=== PATIENT | male | born 1945 | race Caucasian/White ===

== ENCOUNTER 2016-05-17 05:40 | Day surgery (SDC) | payer OTHER, BC ==
[2016-05-17] VITALS (8 sets, daily range): BP systolic 132–176; BP diastolic 27–92
[~2016-05-17] VITALS: Ht 165.1 cm; Wt 89.0 kg
[~2016-05-17 05:40] MED LIST: ADULT LOW DOSE81 M1 PO; ASCORBIC ACID500 M3 PO; ASPIR-LOW81 MG PO; CELEBREX200 MG PO; COMBIVENT RESPIM4 GM IH; ENBREL25 MG/0.5 SQ; ENBREL50 MG/1 ML SC; FIORICET WI1 CAPSULE PO; FLOVENT 11120 INHALA IH; FOLIC ACID1 MG PO; FORTESTA60 GM TD; LIPITOR40 MG PO; MULTIPLE VITAM1 EACH PO; NEURONTIN100 MG PO; NEURONTIN600 MG PO; PREVACID30 MG PO; TOPROL XL25 MG PO; TOPROL XL50 MG PO; TREXALL10 MG PO; ULTRAM50 MG PO; VOLTAREN 1% GE100 GM TP
[2016-05-17] MEDS ORDERED: NORCO 5/3251 TABLET PO (09:01)
[2016-05-18 03:18] VITALS: BP 134/76
== END 2016-05-18 10:56 | disposition home or self-care (01) ==
LOC: SDC 05:40 → 2SOUTH 08:53 → 2EAST 08:53 → 2SOUTH 08:53 → 2EAST 15:24 → SDC 15:46 → 2EAST 05-18 10:56
PROC: 0GJK3ZZ Inspection of Thyroid Gland, Percutaneous Approach (ICD-10-PCS; principal; 2016-05-17)
DX: C73 Malignant neoplasm of thyroid gland (principal); Z53.8 Procedure and treatment not carried out for other reasons; I10 Essential (primary) hypertension; K21.9 Gastro-esophageal reflux disease without esophagitis; J45.909 Unspecified asthma, uncomplicated; Z79.82 Long term (current) use of aspirin; Z79.51 Long term (current) use of inhaled steroids
CPT/HCPCS: 94640; 94640 76; 99202; G0378; J0330; J0690; J1170; J2405; J3010; J7120

== ENCOUNTER 2016-10-10 14:21 | Day surgery (SDC) | payer OTHER, BC ==
[~2016-10-10] VITALS: Ht 165.1 cm; Wt 75.7 kg
[~2016-10-10 14:21] MED LIST changes: +NORCO 5/3251 TABLET PO
[2016-10-10 15:08] VITALS: BP 131/77
[2016-10-10 16:18] LABS: HEMATOCRIT 42.1 % (38.0-50.0); MCH 28.2 PG (29.0-34.0); MCHC 33.5 G/DL (30.0-36.0); MCV 84.2 FL (86-99); MEAN PLAT.VOLUME 8.9 uM^3 (9.0-12.4); PLATELET COUNT 136 K/uL (156-360); RBC DIS.WIDTH-CV 13.2 % (11.8-14.6); RBC DIS.WIDTH-SD 40.7 % (39-53); WHITE BLOOD COUNT 3.4 K/uL (4.1-10.2)
[2016-10-10 16:25] LABS: CHLORIDE 104 mEq/L (99-109); POTASSIUM 4.1 mEq/L (3.7-5.4); SODIUM 137 mEq/L (136-147)
[2016-10-10 16:27] LABS: GLUCOSE 86 mg/dL (70-99)
[2016-10-10 16:29] LABS: ANION GAP 8 MEQ/L (2-14)
[2016-10-10 16:31] LABS: GFR ESTIMATE (CALCULATED) > 59 mL/min/
[2016-10-10 16:32] LABS: UREA NITROGEN (BUN) 22 mg/dL (9-23)
== END 2016-10-10 20:20 | disposition home or self-care (01) ==
LOC: EME 14:21 → SDC 18:48 → EME 18:48 → SDC 18:55
PROVIDERS: Nurse Practitioner Family
DX: T18.128A Food in esophagus causing other injury, initial encounter (principal); I10 Essential (primary) hypertension; I25.10 Atherosclerotic heart disease of native coronary artery without angina pectoris; K21.9 Gastro-esophageal reflux disease without esophagitis; L40.50 Arthropathic psoriasis, unspecified; E78.5 Hyperlipidemia, unspecified; Z85.850 Personal history of malignant neoplasm of thyroid; Z92.21 Personal history of antineoplastic chemotherapy; Z92.3 Personal history of irradiation; Z95.1 Presence of aortocoronary bypass graft; Z87.891 Personal history of nicotine dependence
CPT/HCPCS: 70360; 80048; 85027; 88305; 88342 TC; 93005; 99281; 99284; J0330; J2250; J2405; J3010

== ENCOUNTER 2016-12-24 18:55 | Emergency (ER) | payer OTHER, BC ==
[~2016-12-24] VITALS: Ht 165.1 cm; Wt 76.8 kg
[2016-12-24 19:42] LABS: ADD MIUA? NO; BILIRUBIN NEGATIVE; BLOOD NEGATIVE; COLOR YELLOW ((YELLOW)); GLUCOSE (STRIP) NEGATIVE; KETONES NEGATIVE; LEUKOCYTES NEGATIVE; NITRITE NEGATIVE; PROTEIN (STRIP) NEGATIVE; SPECIFIC GRAVITY 1.021 (1.000-1.030); UROBILINOGEN 0.2 MG/DL (0.2-1.0)
[2016-12-24 20:05] LABS: UCUL ADDED? NO
[2016-12-24 20:11] LABS: HEMATOCRIT 42.1 % (38.0-50.0); MCH 28.9 PG (29.0-34.0); MCHC 33.3 G/DL (30.0-36.0); MEAN PLAT.VOLUME 8.7 uM^3 (9.0-12.4); PLATELET COUNT 134 K/uL (156-360); RBC DIS.WIDTH-CV 13.8 % (11.8-14.6); RBC DIS.WIDTH-SD 44.2 % (39-53); RED BLOOD COUNT 4.84 M/uL (4.00-5.50); WHITE BLOOD COUNT 3.8 K/uL (4.1-10.2)
[2016-12-24 20:19] LABS: CHLORIDE 104 mEq/L (99-109); POTASSIUM 4.5 mEq/L (3.7-5.4); SODIUM 138 mEq/L (136-147)
[2016-12-24 20:20] LABS: GLUCOSE 108 mg/dL (70-99)
[2016-12-24 20:22] LABS: ANION GAP 12 MEQ/L (2-14)
[2016-12-24 20:24] LABS: GFR ESTIMATE (CALCULATED) > 59 mL/min/
[2016-12-24 20:25] LABS: UREA NITROGEN (BUN) 29 mg/dL (9-23)
[2016-12-24] MEDS ORDERED: PERCOCET 5/31 TABLET PO (20:32)
[2016-12-24] MEDS ORDERED: FLOMAX0.4 MG PO (20:32)
[2016-12-24 21:14] VITALS: BP 141/82
== END 2016-12-24 21:18 | disposition home or self-care (01) ==
LOC: EME 18:55 → RME 18:55
DX: N20.0 Calculus of kidney (principal); J45.909 Unspecified asthma, uncomplicated; E78.5 Hyperlipidemia, unspecified; Z95.1 Presence of aortocoronary bypass graft; Z87.891 Personal history of nicotine dependence
CPT/HCPCS: 80048; 81003; 85027; 93005; 99281; 99284

== ENCOUNTER 2017-01-03 05:34 | Day surgery (SDC) | payer OTHER, BC ==
[~2017-01-03] VITALS: Ht 165.1 cm; Wt 74.8 kg
[~2017-01-03 05:34] MED LIST changes: +FLOMAX0.4 MG PO; +PERCOCET 5/31 TABLET PO; +SYNTHROID112 MCG PO
[2017-01-03 06:44] VITALS: BP 126/78
[2017-01-03 10:05] VITALS: BP 163/84
== END 2017-01-03 10:45 | disposition home or self-care (01) ==
LOC: SDC 05:34
DX: N20.1 Calculus of ureter (principal); I10 Essential (primary) hypertension; J45.909 Unspecified asthma, uncomplicated; M06.9 Rheumatoid arthritis, unspecified; K21.9 Gastro-esophageal reflux disease without esophagitis; I25.10 Atherosclerotic heart disease of native coronary artery without angina pectoris; I45.10 Unspecified right bundle-branch block; Z95.1 Presence of aortocoronary bypass graft; Z85.850 Personal history of malignant neoplasm of thyroid; Z87.891 Personal history of nicotine dependence; Z79.82 Long term (current) use of aspirin
CPT/HCPCS: C1769; C2625; J0330; J0690; J2250; J2405; J3010; J7050

== ENCOUNTER → 2017-02-22 | Outpatient (CLI) | payer OTHER, BC | END | disposition home or self-care (01) | DX: R26.2 Difficulty in walking, not elsewhere classified (principal); M25.561 Pain in right knee; M25.661 Stiffness of right knee, not elsewhere classified; M62.81 Muscle weakness (generalized); M17.11 Unilateral primary osteoarthritis, right knee | CPT/HCPCS: 97161 GP; 97530 GP; G8978 GP; G8979 GP; G8980 GP ==

== ENCOUNTER 2017-04-04 22:13 | Inpatient (IN) | payer OTHER, BC ==
[~2017-04-04] VITALS: Ht 165.1 cm; Wt 77.6 kg
[~2017-04-04 22:13] MED LIST changes: +VENTOLIN HFA18 GM IH
[2017-04-05 06:44] VITALS: BP 134/80
[2017-04-05 11:41] VITALS: BP 131/79
[2017-04-05 15:54] VITALS: BP 120/56
[2017-04-05 18:12] VITALS: BP 122/79
[2017-04-05 20:25] VITALS: BP 114/63
[2017-04-06] VITALS (7 sets, daily range): BP systolic 107–118; BP diastolic 57–78
[2017-04-06 09:14] LABS: HEMATOCRIT 30.6 % (38.0-50.0)
[2017-04-06 09:27] LABS: HEMOGLOBIN 10.2 G/DL (12.5-16.6)
[2017-04-06 09:30] LABS: CHLORIDE 105 MEQ/L (99-109); CREATININE 0.6 MG/DL (0.6-1.3); GFR ESTIMATE (CALCULATED) > 59 mL/min/ (58.99-99999); GLUCOSE 104 mg/dL (70-99); POTASSIUM 3.6 MEQ/L (3.7-5.4); SODIUM 139 MEQ/L (136-147); UREA NITROGEN (BUN) 23 mg/dL (9-23)
[2017-04-07 00:20] VITALS: BP 116/65
[2017-04-07 04:26] VITALS: BP 118/67
[2017-04-07 08:14] VITALS: BP 113/55
[2017-04-07] MEDS ORDERED: SENNA PLUS TAB1 EACH PO (08:22)
[2017-04-07] MEDS ORDERED: ENDOCET 5-3251 EACH PO (08:22)
[2017-04-07] MEDS ORDERED: ELIQUIS2.5 MG PO (08:22)
[2017-04-07 08:48] LABS: HEMATOCRIT 26.1 % (38.0-50.0); HEMOGLOBIN 8.8 G/DL (12.5-16.6); MCV 89.4 FL (86-99)
[2017-04-07 12:00] VITALS: BP 134/67
== END 2017-04-07 14:35 | DRG 470 ==
LOC: ENRESERV 22:13 → 2SOUTH 04-05 05:57 → 3WEST 04-05 11:10 → 2SOUTH 04-05 11:33 → 3WEST 04-07 14:35
PROVIDERS: Orthopaedic Surgery
PROC: 0SRC0J9 Replacement of Right Knee Joint with Synthetic Substitute, Cemented, Open Approach (ICD-10-PCS; principal; 2017-04-05)
DX: M17.11 Unilateral primary osteoarthritis, right knee (principal); M65.9 Synovitis and tenosynovitis, unspecified; I10 Essential (primary) hypertension; E78.00 Pure hypercholesterolemia, unspecified; E03.9 Hypothyroidism, unspecified; G89.29 Other chronic pain; K21.9 Gastro-esophageal reflux disease without esophagitis; L40.50 Arthropathic psoriasis, unspecified; Z68.28 Body mass index [BMI] 28.0-28.9, adult; Z87.891 Personal history of nicotine dependence; Z82.49 Family history of ischemic heart disease and other diseases of the circulatory system
CPT/HCPCS: 80048; 85014; 85018; 94640 76; 94660; 99202; C1713; J0131; J0690; J1100; J1885; J2250; J2405; J7050; J7120

== ENCOUNTER 2017-05-30 07:41 | Day surgery (SDC) | payer OTHER, BC ==
[~2017-05-30] VITALS: Ht 165.1 cm; Wt 77.6 kg
[~2017-05-30 07:41] MED LIST changes: +ELIQUIS2.5 MG PO; +ENDOCET 5-3251 EACH PO; +SENNA PLUS TAB1 EACH PO
[2017-05-30] MEDS ORDERED: CELEBREX200 MG PO (07:53)
[2017-06-02] MEDS ORDERED: FIORICET 50-301 EAC1 PO (10:04)
[2017-06-02] MEDS ORDERED: ASPIRIN81 M2 PO (10:04)
== END 2017-05-30 08:50 | disposition home or self-care (01) ==
LOC: PAIN 07:41 → SDC 08:00 → PAIN 08:00
DX: M47.812 Spondylosis without myelopathy or radiculopathy, cervical region (principal); M50.31 Other cervical disc degeneration, high cervical region; M48.02 Spinal stenosis, cervical region; R51 Headache; C73 Malignant neoplasm of thyroid gland; M79.1 Myalgia; J45.909 Unspecified asthma, uncomplicated; I10 Essential (primary) hypertension; E03.9 Hypothyroidism, unspecified; K21.9 Gastro-esophageal reflux disease without esophagitis; I45.10 Unspecified right bundle-branch block; Z79.891 Long term (current) use of opiate analgesic; Z79.82 Long term (current) use of aspirin; Z87.891 Personal history of nicotine dependence
CPT/HCPCS: J1030; J2250; J3010; S0020

== ENCOUNTER 2017-06-06 07:35 | Day surgery (SDC) | payer OTHER, BC ==
[~2017-06-06] VITALS: Ht 165.1 cm; Wt 77.6 kg
[~2017-06-06 07:35] MED LIST changes: +ASPIRIN81 M2 PO; +FIORICET 50-301 EAC1 PO
[2017-06-06 07:49] VITALS: BP 138/77
== END 2017-06-06 09:15 | disposition home or self-care (01) ==
LOC: PAIN 07:35
DX: M47.812 Spondylosis without myelopathy or radiculopathy, cervical region (principal); R51 Headache; M48.02 Spinal stenosis, cervical region; M50.20 Other cervical disc displacement, unspecified cervical region; C32.9 Malignant neoplasm of larynx, unspecified; Z96.651 Presence of right artificial knee joint; Z85.850 Personal history of malignant neoplasm of thyroid; Z85.820 Personal history of malignant melanoma of skin; I25.10 Atherosclerotic heart disease of native coronary artery without angina pectoris; Z95.1 Presence of aortocoronary bypass graft; Z79.82 Long term (current) use of aspirin
CPT/HCPCS: J2250; J3010; S0020

== ENCOUNTER 2017-06-20 13:09 | Day surgery (SDC) | payer OTHER, BC ==
[~2017-06-20] VITALS: Ht 165.1 cm; Wt 77.1 kg
== END 2017-06-20 14:48 | disposition home or self-care (01) ==
LOC: PAIN 13:09 → SDC 13:30 → PAIN 13:30
DX: M12.88 Other specific arthropathies, not elsewhere classified, other specified site (principal); Z85.850 Personal history of malignant neoplasm of thyroid; Z79.82 Long term (current) use of aspirin
CPT/HCPCS: J1030; J2250; S0020

== ENCOUNTER 2017-07-25 07:42 | Day surgery (SDC) | payer OTHER, BC ==
[~2017-07-25] VITALS: Ht 165.1 cm; Wt 77.1 kg
[~2017-07-25 07:42] MED LIST changes: +LEUCOVORIN CALCI5 MG PO
== END 2017-07-25 08:55 | disposition home or self-care (01) ==
LOC: PAIN 07:42 → SDC 08:00 → PAIN 08:00
DX: M47.812 Spondylosis without myelopathy or radiculopathy, cervical region (principal); R51 Headache; M99.81 Other biomechanical lesions of cervical region; Z85.850 Personal history of malignant neoplasm of thyroid; Z85.21 Personal history of malignant neoplasm of larynx; Z85.820 Personal history of malignant melanoma of skin; Z96.651 Presence of right artificial knee joint; Z79.899 Other long term (current) drug therapy; Z79.82 Long term (current) use of aspirin
CPT/HCPCS: J1030; J1885; J2250; S0020